=== PATIENT | female | born 2000 | race Caucasian/White ===

== ENCOUNTER 2020-02-19 16:33 | Emergency (ER) | payer OTHER ==
[2020-02-19 16:44] VITALS: RESP 18
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
[2020-02-19 18:35] VITALS: BP 132/82; PULSE 72; TEMP 98.1
== END 2020-02-19 18:35 | disposition home or self-care (01) ==
LOC: EC 16:33
DX: S43.401A Unspecified sprain of right shoulder joint, initial encounter (principal); S50.11XA Contusion of right forearm, initial encounter; V49.59XA Passenger injured in collision with other motor vehicles in traffic accident, initial encounter; Y92.410 Unspecified street and highway as the place of occurrence of the external cause; Y93.89 Activity, other specified
CPT/HCPCS: 99284

== ENCOUNTER 2024-08-05 17:48 | Emergency (ER) | payer OTHER ==
--- NOTE | 2024-08-05 18:55 | ED ---
General Adult HPI - General Chief complaint: Back Pain/Injury Stated complaint: low back pain Time Seen by Provider: 08/05/24 18:34 Source: patient Mode of arrival: ambulatory Limitations: no limitations - History of Present Illness Initial comments: Dictation was produced using [employer] dictation software. please excuse any grammatical, word or spelling errors. Chief Complaint: 24-year-old female with back pain History of Present Illness: Patient 24-year-old female presents with back pain. States she was at work bending over when she tried to lift an object and all of a sudden felt a sharp pain in her lower back. States that it radiates down both legs. Denies any bowel or bladder control issues. Denies any known lumbar go history. Urgent care was told to take 3 ibuprofen. Her pain did not improve and she instead came to the ER. The ROS documented in this emergency department record has been reviewed and confirmed by me. Those systems with pertinent positive or negative responses have been documented in the HPI. All other systems are other negative and/or noncontributory. - Related Data Allergies Allergy/AdvReac Type Severity Reaction Status Date / Time No Known Allergies Allergy Verified 08/05/24 18:23 Review of Systems ROS Statement: Those systems with pertinent positive or pertinent negative responses have been documented in the HPI. ROS Other: All systems not noted in ROS Statement are negative. Past Medical History Past Medical History: No Reported History History of Any Multi-Drug Resistant Organisms: None Reported Past Surgical History: No Surgical Hx Reported Past Psychological History: No Psychological Hx Reported Smoking Status: Never smoker Past Alcohol Use History: None Reported Past Drug Use History: None Reported General Exam - General Exam Comments Initial Comments: PHYSICAL EXAM: General Impression: Alert and oriented x3, not in acute distress HEENT: Normocephalic atraumatic, extra-ocular movements intact, pupils equal and reactive to light bilaterally, mucous membranes moist. Cardiovascular: Heart regular rate and rhythm Chest: Able to complete full sentences, no retractions, no tachypnea Abdomen: abdomen soft, non-tender, non-distended, no organomegaly Musculoskeletal: Pulses present and equal in all extremities, no peripheral edema Motor: no focal deficits noted Neurological: CN II-XII grossly intact, no focal motor or sensory deficits noted Skin: Intact with no visualized rashes Psych: Normal affect and mood Limitations: no limitations Course Vital Signs 08/05/24 18:21 Temperature 98.3 F Pulse Rate 79 Respiratory 20 Rate Blood Pressure 149/96 O2 Sat by Pulse 99 Oximetry Medical Decision Making - Medical Decision Making Was pt. sent in by a medical professional or institution (, NATHALIE, [employer]PERVIS[employer], urgent care, hospital, or retirement...) When possible be specific @ -No Did you speak to anyone other than the patient for history (EMS, parent, family, police, friend...)? What history was obtained from this source @ -No Did you review nursing and triage notes (agree or disagree)? Why? @ -I reviewed and agree with nursing and triage notes Were old charts reviewed (outside hosp., previous admission, EMS record, old EKG, old radiological studies, urgent care reports/EKG's, retirement records)? Report findings @ -No old charts were reviewed Differential Diagnosis (chest pain, altered mental status, abdominal pain women, abdominal pain men, vaginal bleeding, musculoskeletal, weakness, fever, dyspnea, syncope, headache, dizziness, GI bleed, back pain, seizure, CVA, palpatations, mental health)? @ -Differential Back Pain: Strain, zoster, cauda equina syndrome, epidural abscess, vertebral osteomyelitis, discitis, fracture, subluxation, disc herniation, DJD, spinal stenosis, dissection, AAA, pancreatitis, peptic ulcer disease, pyelonephritis, kidney stone, this is not meant to be an all-inclusive list. EKG interpreted by me (3pts min.). @ -None done X-rays interpreted by me (1pt min.). @ -None done CT interpreted by me (1pt min.). @ -CT lumbar spine shows no acute processes U/S interpreted by me (1pt. min.). @ -None done What testing was considered but not performed or refused? (CT, X-rays, U/S, labs)? Why? @ -None What meds were considered but not given or refused? Why? @ -None Was smoking cessation discussed for >3mins.? @ -No Were there social determinants of health that impacted care today? How? (Tee elessness, low income, unemployed, alcoholism, drug addiction, transportation, low edu. Level, literacy, decrease access to med. care, fpc, rehab)? @ -No Was there de-escalation of care discussed even if they declined (Discuss DNR or withdrawal of care, Hospice)? DNR status @ -No What co-morbidities impacted this encounter? (DM, HTN, Smoking, COPD, CAD, Cancer, CVA, ARF, Chemo, Hep., AIDS, mental health diagnosis, sleep apnea, morbid obesity)? @ -None Was patient admitted / discharged? Hospital course, mention meds given and route, prescriptions, significant lab abnormalities, going to OR and other pertinent info. @ -24-year-old female with back strain. Vital signs stable. CT ordered due to radiation of symptoms down her bilateral bilateral extremities. Patient has otherwise no red flag symptoms. Urine negative. Unremarkable. Clinical presentation consistent with back strain. Given outpatient referral to spine for further outpatient care. Did you discuss the management of the patient with other professionals (professionals i.e. , PA, SUPERVIS[employer], lab, RT, psych nurse, medical social worker, broadcast director operations, teacher, seaman officer, case assembler)? Give summary @ -No Was critical care preformed (if so, how long)? @ -No Undiagnosed new problem with uncertain prognosis? @ -No Drug Therapy requiring intensive monitoring for toxicity (Heparin, Nitro, Insulin, Cardizem)? @ -No Were any procedures done? @ -No Diagnosis/symptom? Acute, or Chronic, or Acute on Chronic? Uncomplicated (without systemic symptoms) or Complicated (systemic symptoms)? @ -Lumbar strain Side effects of treatment? @ -No Exacerbation, Progression, or Severe Exacerbation? @ -No Poses a threat to life or bodily function? How? (Chest pain, [place], [place], pneumonia, PE, COPD, DKA, ARF, appy, cholecystitis, CVA, Diverticulitis, Homicidal, Suicidal, threat to staff... and all critical care pts) @ -yes - Lab Data Lab Results 08/05/24 Range/Units 19:08 Urine HCG, Qual Not Detected (Not Detectd) Disposition Clinical Impression: Back strain Disposition: HOME SELF-CARE Condition: Fair Instructions (If sedation given, give patient instructions): Acute Low Back Pain (ED) Is patient prescribed a controlled substance at d/c from ED?: No Referrals: Bonifacio Conway DO [Doctor of Osteopathic Medicine] - 1-2 days Time of Disposition: 22:07
[2024-08-05] MEDS: oxyCODONE-APAP 10-325MG 1 EACH TAB PO STA (20:02)
[2024-08-05] MEDS: methocarbamoL 500 MG TAB PO STA (20:02)
[2024-08-05] MEDS: LIDOCAINE 4% PATCH TOPICAL ONE (20:02)
--- NOTE | 2024-08-05 21:47 | CT ---
EXAMINATION TYPE: CT lumbar spine wo con DATE OF EXAM: 08/05/2024 8:57 PM COMPARISON: None. CLINICAL INDICATION: Female, 24 years old with history of back pain; PHH, Low back pain after heavy l ifting at work, pain radiates down both legs. TECHNIQUE: Unenhanced CT of the lumbar spine was performed. Bone and soft tissue window settings are submitted as well as coronal and sagittal reconstructions. CT DLP: 1201.[address] CTDI: 35 mGy Automated exposure control for dose reduction was used. FINDINGS: There are 5 lumbar-type vertebra. There is slight scoliotic curvature or positioning seen. No acute f racture or dislocation. Vertebral body heights are maintained. Mild disc space narrowing at L5-S1 lev el otherwise disc space heights are maintained. Small posterior disc herniation L5-S1 level seen best sagittal image 36. Spinal canal is grossly preserved. Paraspinal muscle bulk is maintained. [id number] fecal prominence in the right colon. There is a suspected appendicolith coronal imag e 14 and nondilated appendix. IMPRESSION: No acute findings are seen. [facility], , 08/05/2024 9:44 PM
[2024-08-05] MEDS: ACET/COD 300 MG/30 MG STARTER PACK 6 TAB BTL PO STA (22:34)
[2024-08-05 22:42] VITALS: BP 138/88; PULSE 74; RESP 18; TEMP 98.2
== END 2024-08-05 22:42 | disposition home or self-care (01) ==
LOC: EC 17:48
DX: S39.012A Strain of muscle, fascia and tendon of lower back, initial encounter (principal); X58.XXXA Exposure to other specified factors, initial encounter; Y99.0 Civilian activity done for income or pay
CPT/HCPCS: 72131; 81025; 99284